=== PATIENT | female | born 2000 | race Caucasian/White ===

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

== ENCOUNTER 2018-03-11 16:12 | Emergency (ER) | payer OTHER ==
[~2018-03-11] VITALS: Ht 176.5 cm; Wt 73.0 kg
[2018-03-11 16:19] VITALS: BP 112/75
[2018-03-11] MEDS ORDERED: maalox/diphenh/lido/sucralfate 5 ML PO PRN (17:00)
== END 2018-03-11 17:06 | disposition home or self-care (01) ==
LOC: ED 17:00
DX: J02.9 Acute pharyngitis, unspecified (principal); H66.92 Otitis media, unspecified, left ear
CPT/HCPCS: 99283